=== PATIENT | female | born 1995 | race Caucasian/White ===

== ENCOUNTER 2020-11-12 15:52 | Outpatient (CLI) | payer OTHER ==
[2020-11-13 09:06] LABS: HEPATITIS B SURFACE ANTIGEN Negative (Negative)
== END 2020-11-12 20:53 | disposition home or self-care (01) ==
LOC: MLB 15:52
PROVIDERS: ATTEND Obstetrics & Gynecology
DX: Z11.3 Encounter for screening for infections with a predominantly sexual mode of transmission (principal)
CPT/HCPCS: 36415; 86592; 86694; 86702; 86803; 87340; 87490

== ENCOUNTER 2021-11-03 11:42 | Outpatient (CLI) | payer OTHER ==
[2021-11-03 12:23] LABS: BASOPHILS # (AUTO) 0.1 K/uL (0.00-0.22); BASOPHILS % (AUTO) 0.7 % (0.0-2.0); EOSINOPHILS # (AUTO) 0.1 K/uL (0-0.4); EOSINOPHILS % (AUTO) 1.1 % (0.0-4.0); HEMATOCRIT 41.7 % (36-48); HEMOGLOBIN 14.5 g/dL (12.0-16.0); LYMPHOCYTES # (AUTO) 2.9 K/uL (2.5-16.5); LYMPHOCYTES % (AUTO) 25.7 % (20.5-51.1); MEAN CORPUSCULAR HEMOGLOBIN 29 pg (27-31); MEAN CORPUSCULAR HGB CONC 35 g/dL (33-37); MEAN CORPUSCULAR VOLUME 83.5 fL (80-94); MONOCYTES # (AUTO) 0.7 K/uL (0.8-1.0); MONOCYTES % (AUTO) 6.7 % (1.7-9.3); NEUTROPHILS # (AUTO) 7.3 K/uL (1.8-7.7); NEUTROPHILS % (AUTO) 65.8 % (42.2-75.2); PLATELET COUNT (AUTO) 428 K/uL (140-450); RED CELL DISTRIBUTION WIDTH 12.9 % (11.6-13.7); WHITE BLOOD COUNT (AUTO) 11.1 K/uL (4.8-10.8)
[2021-11-03 13:09] LABS: ALBUMIN 4.1 g/dL (3.4-5.0); ANION GAP 11.9 (8-16); CARBON DIOXIDE 27.7 mmol/L (21-32); CREATININE 0.6 mg/dL (0.6-1.3); POTASSIUM 4.6 mmol/L (3.5-5.1); THYROID STIMULATING HORMONE 1.44 uIU/mL (0.34-3.74); TOTAL BILIRUBIN 0.4 mg/dL (0.0-1.0)
[2021-11-04 15:07] LABS: ESTRADIOL SERUM 35.3 pg/mL (.); FOLLICLE STIMULATING HORMONE 8.7 mIU/mL (.); LUTEINIZING HORMONE 23.3 mIU/mL (.); T4 FREE (DIRECT) 1.47 ng/dL (0.82-1.77); TRIIODOTHYRONINE FREE 3.5 pg/mL (2.0-4.4)
== END 2021-11-03 20:02 | disposition home or self-care (01) ==
LOC: MLB 11:42
PROVIDERS: ATTEND Obstetrics & Gynecology
DX: Z87.42 Personal history of other diseases of the female genital tract (principal)
CPT/HCPCS: 36415; 80053; 82306; 82607; 82670; 83001; 83002; 84403; 84439; 84443; 84481; 85025

== ENCOUNTER 2022-09-10 11:26 | Outpatient (CLI) | payer OTHER ==
[2022-09-11 15:07] LABS: HEPATITIS B SURFACE ANTIGEN Negative (Negative); HEPATITIS C VIRUS ANTIBODY <0.1 s/co ratio (0.0-0.9)
== END 2022-09-10 20:21 | disposition home or self-care (01) ==
LOC: MLB 11:26
PROVIDERS: ATTEND Obstetrics & Gynecology
DX: Z11.3 Encounter for screening for infections with a predominantly sexual mode of transmission (principal)
CPT/HCPCS: 36415; 86592; 86702; 86803; 87340; 87491